=== PATIENT | female | born 1975 | race Caucasian/White ===

== ENCOUNTER 2018-06-30 11:18 | Emergency (ER) | payer SELFPAY ==
[~2018-06-30] VITALS: Ht 162.6 cm; Wt 125.0 kg
[2018-06-30 11:39] VITALS: BP 106/65; PULSE 91; RESP 19; Ht 162.6 cm; Wt 125.0 kg
[2018-06-30] MEDS ORDERED: IBUPROFEN 600 MG TAB PO ONE (12:00)
[2018-06-30] MEDS ORDERED: IBUP-1542 PO (13:11)
--- NOTE | 2018-06-30 13:15 | ERD ---
ER Documentation Chief Complaint Chief Complaint LEFT FOOT PAIN/INJURY HPI 43-year-old female presents with left foot pain after twisting going up some stairs today. She has pain in the left foot and ankle. She has no restricted range of motion or weakness. She has no redness or fevers. ROS All systems reviewed and are negative except as per history of present illness. Medications Home Meds Active Scripts Ibuprofen* (Motrin*) 600 Mg Tab, 600 MG PO Q6, #30 TAB Prov:MARIBELL DOYLE MD 06/30/18 Allergies Allergies: Coded Allergies: No Known Allergy (Unverified , 03/03/12) PMhx/Soc History of Surgery: Yes (C-SECT X2, GB) Anesthesia Reaction: No Hx Neurological Disorder: No Hx Respiratory Disorders: No Hx Cardiac Disorders: Yes (HIGH CHOLESTEROL) Hx Psychiatric Problems: Yes (ANXIETY) Hx Miscellaneous Medical Probl: Yes (psoriasis) Hx Alcohol Use: No Hx Substance Use: No Hx Tobacco Use: No Smoking Status: Never smoker FmHx Family History: No diabetes, No coronary disease, No other Physical Exam Vitals Vital Signs Date Temp Pulse Resp B/P (MAP) Pulse Ox O2 O2 Flow FiO2 Time Delivery Rate 06/30/18 98.9 91 19 106/65 95 11:39 (79) Physical Exam Const: No acute distress Head: Atraumatic Eyes: Normal Conjunctiva ENT: Normal External Ears, Nose and Mouth. Neck: Full range of motion. No meningismus. Resp: Clear to auscultation bilaterally Cardio: Regular rate and rhythm, no murmurs Abd: Soft, non tender, non distended. Normal bowel sounds Skin: No petechiae or rashes Back: No midline or flank tenderness Ext: No cyanosis, or edema. Tenderness diffusely over the lateral left foot with bruising and swelling and mildly on the left lateral ankle. No deformities. No restricted range of motion or deficits appreciated. No warmth, erythema or bleeding. Neur: Awake and alert Psych: Normal Mood and Affect Results 24 hrs Current Medications Medications Dose Sig/Froilan Start Time Status Last (Trade) Ordered Route PRN Stop Time Admin Dose Reason Admin Ibuprofen 600 mg ONCE ONCE 06/30/18 DC 06/30/18 (Motrin) PO 12:00 12:07 06/30/18 12:02 Procedures/MDM X-ray Foot 3V Interpreted by me: Bones: Minimally displaced left midshaft fifth metatarsal fracture. Joints: No dislocation Foreign body: None. Impression-minimally displaced left fifth metatarsal fracture. X-ray left ankle 3V Interpreted by me: Bones: No fracture Joints: No dislocation Foreign Body: None imPression-degenerative changes without appreciated fracture of left ankle. Patient given ibuprofen for pain. Patient placed in left foot walker boot and administered crutches with crutch training. Patient neurovascular intact after boot. Immobilization was deferred given the patient's body habitus and risk for fall. Advised to follow-up with orthopedics for further evaluation of left foot fracture. Should return sooner for fevers, redness, new worsening symptoms. Currently no evidence of infection, ischemia or deficits. Departure Diagnosis: Primary Impression: Fracture, foot Encounter type: initial encounter Fracture type: closed Laterality: left Qualified Codes: S92.902A - Unspecified fracture of left foot, initial encounter for closed fracture Condition: Stable Patient Instructions: Fracture, Foot Referrals: [facility] Hours: Thu-Thu 9:00 AM - 5:00 PM Additional Instructions: See orthopedist for further evaluation and treatment. Recheck sooner for new or worsening symptoms-fevers, redness. MARIBELL DOYLE MD Jun 30, 2018 13:15
== END 2018-06-30 13:53 | disposition home or self-care (01) ==
LOC: FTE 11:18
DX: S92.902A Unspecified fracture of left foot, initial encounter for closed fracture (principal); X50.1XXA Overexertion from prolonged static or awkward postures, initial encounter; Y92.9 Unspecified place or not applicable
CPT/HCPCS: 73610